=== PATIENT | female | born 1940 | race Caucasian/White ===

== ENCOUNTER → 2016-05-17 | Outpatient (CLI) | payer MEDICARE, BC ==
[2016-05-17 12:30] LABS: BASO % 0.3 % (0.0-1.0); EOS % 0.4 % (0.0-3.0); LARGE UNSTAINED CELL # 0.2 K/mm3 (0.0-0.4); LARGE UNSTAINED CELL % 2.6 % (0.0-4.0); LYMPH # 2.8 K/mm3 (1.5-4.5); LYMPH % 44.7 % (24.0-44.0); MEAN CORPUSCULAR HGB CONC 33.4 g/dl (32.0-36.5); MEAN CORPUSCULAR VOLUME 92.7 fl (80.0-96.0); MONO # 0.5 K/mm3 (0.0-0.8); MONO % 8.8 % (0.0-5.0); NEUTROPHILS # 2.6 K/mm3 (1.8-7.7); NEUTROPHILS % 43.1 % (36.0-66.0); PLATELET COUNT, AUTOMATED 245 k/mm3 (150-450); RED CELL DISTRIBUTION WIDTH 13.8 % (11.5-14.5)
[2016-05-17 12:38] LABS: CONTROL LINE MONO RF C INT CTR LINE PRESENT
--- NOTE | 2016-05-17 12:47 | REP ---
CHEST PA/LATERAL: 05/17/2016 CLINICAL HISTORY: Bronchitis symptoms. FINDINGS: There were no prior studies. Lungs are hyperinflated. There is basilar fibrotic change, heavier in the right CP angle and elsewhere but without effusion, dense consolidation, lateral pleural thickening, or acute infiltrate. There is minor apical pleural thickening bilaterally. There is a questionable 8 mm nodule in the right upper lung zone inferior to the right 2nd anterior rib on the PA view. I do not have prior studies for evaluation. The aorta is mildly calcified at the arch, somewhat tortuous but without aneurysm. Airway midline. There is pulmonary artery hypertension without pulmonary edema. No compression deformity in the spine. Bones demineralized. IMPRESSION:' 1. 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 No dense consolidation or definite infiltrate. Apical pleural thickening noted as well. 2. An 8 mm subtle density anterior 2nd intercostal space midclavicular line just inferior to the right 2nd rib. This could be parenchymal, pleural, or chest wall finding. In the absence of prior studies, CT could be considered for evaluation of a solitary pulmonary nodule. Signed by Tony Burleson MD 05/17/2016 01:47 P
[2016-05-17 12:49] LABS: ALBUMIN/GLOBULIN RATIO 1.11 (1.00-1.93); ALKALINE PHOSPHATASE 63 U/L (45-117); ALT/SGPT 27 U/L (12-78); ANION GAP 14 MEQ/L (8-16); AST/SGOT 38 U/L (15-37); BILIRUBIN,TOTAL 0.5 MG/DL (0.2-1.0); BLOOD UREA NITROGEN 55 MG/DL (7-18); CALCIUM LEVEL 8.4 MG/DL (8.8-10.2); CARBON DIOXIDE LEVEL 22 MEQ/L (21-32); CHLORIDE LEVEL 102 MEQ/L (98-107); CREATININE FOR GFR 2.71 MG/DL (0.55-1.02); GLOMERULAR FILTRATION RATE 18.3 (>39); GLUCOSE, FASTING 95 MG/DL (83-110); POTASSIUM SERUM 3.6 MEQ/L (3.5-5.1); SODIUM LEVEL 138 MEQ/L (136-145); TOTAL PROTEIN 7.6 GM/DL (6.4-8.2)
[2016-05-19 08:06] LABS: Lyme Disease IgG Ab 18 kDa Ban Present (.); Lyme Disease IgG Ab 23 kDa Ban Present (.); Lyme Disease IgG Ab 28 kDa Ban Absent (.); Lyme Disease IgG Ab 30 kDa Ban Present (.); Lyme Disease IgG Ab 39 kDa Ban Present (.); Lyme Disease IgG Ab 41 kDa Ban Present (.); Lyme Disease IgG Ab 45 kDa Ban Present (.); Lyme Disease IgG Ab 58 kDa Ban Absent (.); Lyme Disease IgG Ab 66 kDa Ban Present (.); Lyme Disease IgG Ab 93 kDa Ban Absent (.); Lyme Disease IgG West Blot Int Positive (.); Lyme Disease IgG/IgM Antibodie 1.54 ISR (0.00-0.90); Lyme Disease IgM Ab 23 kDa Ban Present (.); Lyme Disease IgM Ab 39 kDa Ban Absent (.); Lyme Disease IgM Ab 41 kDa Ban Present (.); Lyme Disease IgM Ab Quantitati <0.80 index (0.00-0.79); Lyme Disease IgM West Blot Int Positive (.)
== END ==
LOC: M ADAMS 10:20
PROVIDERS: ATTEND Physician Assistant Medical
DX: J44.0 Chronic obstructive pulmonary disease with (acute) lower respiratory infection (principal); R53.83 Other fatigue; I27.2 Other secondary pulmonary hypertension

== ENCOUNTER → 2016-06-15 | Outpatient (REF) | payer MEDICARE, BC ==
[2016-06-15 13:30] LABS: ALBUMIN/GLOBULIN RATIO 0.91 (1.00-1.93); BILIRUBIN,TOTAL 0.6 MG/DL (0.2-1.0); CALCIUM LEVEL 8.3 MG/DL (8.8-10.2); CREATININE FOR GFR 1.65 MG/DL (0.55-1.02); GLOMERULAR FILTRATION RATE 32.5 (>39); POTASSIUM SERUM 4.2 MEQ/L (3.5-5.1); TOTAL PROTEIN 6.3 GM/DL (6.4-8.2)
== END ==
LOC: M LABDRWAD 12:31
PROVIDERS: ATTEND Internal Medicine
DX: I10 Essential (primary) hypertension (principal)

== ENCOUNTER 2017-08-08 08:54 | Emergency (ER) | payer OTHER, BC, MEDICARE | END 2017-08-08 10:30 | disposition home or self-care (01) | LOC: M ED 08:54 | DX: S70.11XA Contusion of right thigh, initial encounter (principal); M25.561 Pain in right knee; M25.562 Pain in left knee; V49.40XA Driver injured in collision with unspecified motor vehicles in traffic accident, initial encounter; Y92.410 Unspecified street and highway as the place of occurrence of the external cause; Z96.652 Presence of left artificial knee joint; I10 Essential (primary) hypertension; E78.5 Hyperlipidemia, unspecified; Z87.891 Personal history of nicotine dependence | CPT/HCPCS: 73564 ==

== ENCOUNTER → 2018-08-13 | Outpatient (REF) | payer OTHER, BC ==
[~2018-08-13] MED LIST: HYDR12CA; OLME20TA2; ROSU10TA6
[2018-08-13 19:47] LABS: FREE T4 1.19 NG/DL (0.76-1.46); THYROID STIMULATING HORMONE 3.14 uIU/ML (0.358-3.740)
== END ==
LOC: M LABDRWAD 19:08
PROVIDERS: ATTEND Internal Medicine
DX: E03.9 Hypothyroidism, unspecified (principal)